=== PATIENT | female | born 1995 | race African-American/Black ===

== ENCOUNTER 2018-01-10 11:53 | Emergency (ER) | payer OTHER ==
[~2018-01-10] VITALS: Ht 170.2 cm; Wt 50.0 kg
[2018-01-10 12:35] VITALS: BP 105/65
== END 2018-01-10 16:44 | disposition left against medical advice (07) ==
LOC: ER 13:29
DX: R20.8 Other disturbances of skin sensation (principal)
CPT/HCPCS: 99281

== ENCOUNTER 2022-03-26 10:58 | Emergency (ER) | payer MEDICAID, OTHER ==
[~2022-03-26] VITALS: Ht 162.6 cm; Wt 63.0 kg
[2022-03-26 11:03] VITALS: BP 112/67
[2022-03-26] MEDS ORDERED: IPRATROPIUM BROMIDE (0.02%) 0.5MG/2.5ML NEB HHN STA (14:57)
[2022-03-26] MEDS ORDERED: ACETAMINOPHEN 325MG TABLET PO STA (14:57)
[2022-03-26] MEDS ORDERED: METHYLPREDNISOLONE SOD SUCC 125 MG/2 ML VIAL IM STA (14:57)
[2022-03-26] MEDS ORDERED: ALBUTEROL (0.083%) 2.5MG/3ML NEB HHN STA (14:57)
[2022-03-26] MEDS ORDERED: P20 PO (16:05)
[2022-03-26] MEDS ORDERED: ACET-2708 PO (16:05)
[2022-03-26] MEDS ORDERED: ALBU18HF2 IH (16:05)
== END 2022-03-26 16:50 | disposition home or self-care (01) ==
LOC: ER 10:58 → EDBD 10:58 → ER 16:50
DX: J45.901 Unspecified asthma with (acute) exacerbation (principal)
CPT/HCPCS: 94640; 96372; 99283; J2930; Z7610